=== PATIENT | male | born 1975 | race African-American/Black ===

== ENCOUNTER 2021-08-03 05:55 | Emergency (ER) | payer MEDICAID ==
[~2021-08-03] VITALS: Ht 182.9 cm; Wt 109.7 kg
[2021-08-03] MEDS ORDERED: KETOROLAC 60MG/2ML VIAL IM ONE (07:00)
[2021-08-03 07:01] VITALS: BP 138/84
== END 2021-08-03 07:06 | disposition home or self-care (01) ==
LOC: ER 05:55
DX: L03.011 Cellulitis of right finger (principal)
CPT/HCPCS: 96372; 99283; J1885